=== PATIENT | male | born 1950 | race Caucasian/White ===

== ENCOUNTER 2018-02-04 10:42 | Outpatient (CLI) | payer OTHER | END 2018-02-04 20:26 | disposition home or self-care (01) | LOC: SRD 10:42 | PROVIDERS: ATTEND Family Medicine | DX: M19.031 Primary osteoarthritis, right wrist (principal) ==

== ENCOUNTER 2018-02-24 10:10 | Outpatient (CLI) | payer OTHER | END 2018-02-24 21:27 | disposition home or self-care (01) | LOC: SRD 10:10 | PROVIDERS: ATTEND Family Medicine | DX: M77.9 Enthesopathy, unspecified (principal) ==